=== PATIENT | female | born 1995 | race Caucasian/White ===

== ENCOUNTER 2017-08-03 14:51 | Emergency (ER) | payer OTHER ==
[~2017-08-03] VITALS: Ht 170.2 cm; Wt 79.4 kg
--- NOTE | ~2017-08-03 | EKG ---
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
[~2017-08-03 14:51] MED LIST: ACETAMINOPHEN-1 EAC1 PO; CIPRO500 MG PO; CLONAZEPAM 1 MG1 M1 PO; CYMBALTA60 MG PO; FLEXERIL PO; HYDROCODONE-AP1 EAC6 PO; IBUPROFEN 600600 M1 PO; IBUPROFEN 800800 M1 PO; LAMICTAL100 MG PO; LOXAPINE10 MG PO; NAPROSYN500 MG PO; NORCO 5-325 TA1 EACH PO; PYRIDIUM100 M1 PO; RECLIPSEN1 EACH PO; TOPAMAX 25 MG T25 M1 PO; TRAZODONE 150150 M1 PO; VYVANSE40 MG; VYVANSE50 MG PO; ZOFRAN ODT4 MG PO; ZOFRAN4 MG PO
[2017-08-03] MEDS ORDERED: ATIVAN1 MG PO (15:03)
[2017-08-03 15:24] LABS: ABSOLUTE NEUTROPHILS 7.3 thou/uL (1.4-8.2); BASOPHILS 0.6 % (0.0-2.0); EOSINOPHILS 0.7 % (0.0-3.0); HEMATOCRIT 43.3 % (37.0-47.0); HEMOGLOBIN 15.1 gm/dL (12.0-15.0); LYMPHOCYTES 18.6 % (24.0-44.0); MCH 32.3 pg (26.0-34.0); MCHC 34.8 g/dL (28.0-37.0); MCV 92.9 fL (80.0-100.0); MONOCYTES 6.1 % (1.0-8.0); PLATELET COUNT 232 thou/uL (150-400); RBC 4.67 mil/uL (4.20-5.00); RDW 12.8 % (10.5-14.5); WBC 9.8 thou/uL (4.0-11.0)
[2017-08-03 15:26] LABS: URINE BILIRUBIN NEGATIVE (Negative); URINE BLOOD NEGATIVE (Negative); URINE CLARITY CLEAR; URINE COLOR YELLOW; URINE GLUCOSE-RANDOM* NEGATIVE (Negative); URINE KETONES NEGATIVE (Negative); URINE LEUKOCYTES-REFLEX NEGATIVE (Negative); URINE NITRITE-REFLEX NEGATIVE (Negative); URINE PROTEIN (DIPSTICK) NEGATIVE (Negative); URINE UROBILINOGEN 0.2 E.U./dl (0.2-1.0)
[2017-08-03 15:37] LABS: CREATININE 0.7 mg/dL (0.6-1.0); MAGNESIUM 2.1 mg/dL (1.8-2.4); POTASSIUM 3.8 mmol/L (3.5-5.1)
[2017-08-03 16:48] VITALS: BP 116/70
[2017-08-20] MEDS ORDERED: CYMBALTA20 MG PO (15:10)
[2017-08-20] MEDS ORDERED: HYDROCODONE-AP1 EAC6 PO (16:15)
[2017-08-20] MEDS ORDERED: ZOFRAN ODT4 M1 PO (16:15)
[2017-08-20] MEDS ORDERED: PROVENTIL HFA6.7 G1 INH (16:40)
== END 2017-08-03 17:02 | disposition home or self-care (01) ==
LOC: ER 14:51
PROVIDERS: Emergency Medicine
DX: R07.9 Chest pain, unspecified (principal); R53.1 Weakness; F31.9 Bipolar disorder, unspecified; F90.9 Attention-deficit hyperactivity disorder, unspecified type; Z88.0 Allergy status to penicillin; Z88.1 Allergy status to other antibiotic agents; Z88.8 Allergy status to other drugs, medicaments and biological substances

== ENCOUNTER → 2017-08-20 | Emergency (ER) | payer OTHER ==
[~2017-08-20] VITALS: Ht 165.1 cm; Wt 59.0 kg
[~2017-08-20] MED LIST changes: +ATIVAN1 MG PO; +CYMBALTA20 MG PO; +HYDROXYCHLOROQ200 M1 PO; +ONDANSETRON HCL8 MG PO; +PROVENTIL HFA6.7 G1 INH; +ZOFRAN ODT4 M1 PO
[2017-08-20 15:25] LABS: ABSOLUTE NEUTROPHILS 4.7 thou/uL (1.4-8.2); BASOPHILS 0.4 % (0.0-2.0); EOSINOPHILS 0.6 % (0.0-3.0); HEMATOCRIT 44.8 % (37.0-47.0); HEMOGLOBIN 15.8 gm/dL (12.0-15.0); LYMPHOCYTES 15.9 % (24.0-44.0); MCH 32.6 pg (26.0-34.0); MCHC 35.3 g/dL (28.0-37.0); MCV 92.4 fL (80.0-100.0); MONOCYTES 10.7 % (1.0-8.0); PLATELET COUNT 130 thou/uL (150-400); POLYS 72.4 % (36.0-66.0); RBC 4.85 mil/uL (4.20-5.00); RDW 12.6 % (10.5-14.5); WBC 6.5 thou/uL (4.0-11.0)
[2017-08-20 15:39] LABS: CALCIUM 9.5 mg/dL (8.5-10.1); CREATININE 0.9 mg/dL (0.6-1.0); POTASSIUM 3.5 mmol/L (3.5-5.1)
[2017-08-20 19:05] VITALS: BP 115/61
== END ==
LOC: ER 14:43
PROVIDERS: Physician Assistant
DX: J11.1 Influenza due to unidentified influenza virus with other respiratory manifestations (principal); Z88.1 Allergy status to other antibiotic agents; Z88.0 Allergy status to penicillin; Z88.8 Allergy status to other drugs, medicaments and biological substances

== ENCOUNTER 2017-08-25 14:45 | Emergency (ER) | payer OTHER ==
[~2017-08-25] VITALS: Ht 165.1 cm; Wt 59.0 kg
--- NOTE | ~2017-08-25 | EKG ---
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 08/25/17 1930 1601 1601 Filiberto Solomon MD, FACC /EPI
[~2017-08-25 14:45] MED LIST changes: -HYDROXYCHLOROQ200 M1 PO; -ONDANSETRON HCL8 MG PO
[2017-08-25 15:30] LABS: AMP/METHAMP Negative (Negative); BARBITURATES Negative (Negative); BENZODIAZEPINES Negative (Negative); COCAINE Negative (Negative); METHADONE Negative (Negative); OPIATES Negative (Negative); PCP Negative (Negative)
[2017-08-25 16:02] LABS: ABSOLUTE NEUTROPHILS 7.3 thou/uL (1.4-8.2); BASOPHILS 0.8 % (0.0-2.0); EOSINOPHILS 0.8 % (0.0-3.0); HEMATOCRIT 42.4 % (37.0-47.0); MCH 32.4 pg (26.0-34.0); MCHC 35.4 g/dL (28.0-37.0); MCV 91.6 fL (80.0-100.0); MONOCYTES 5.2 % (1.0-8.0); PLATELET COUNT 212 thou/uL (150-400); POLYS 75.2 % (36.0-66.0); RBC 4.63 mil/uL (4.20-5.00); RDW 12.4 % (10.5-14.5); WBC 9.8 thou/uL (4.0-11.0)
[2017-08-25 16:13] LABS: BE(vivo) 0.6 mmol/L (-2 to +3); HCO3 25.1 mmol/L (22.0-26.0); PCO2 39.9 mmHg (35.0-45.0); PO2 89.1 mmHg (80.0-100.0); pH 7.416 (7.360-7.450); sO2 96.9 % (92.0-98.0)
[2017-08-25 16:13] LABS: ANION GAP 8 mmol/L (7-16); BUN 14 mg/dL (7-18); CALCIUM 9.5 mg/dL (8.5-10.1); CHLORIDE 105 mmol/L (98-107); CO2 25 mmol/L (21-32); CREATININE 0.7 mg/dL (0.6-1.0); GLUCOSE 86 mg/dL (74-106); POTASSIUM 3.7 mmol/L (3.5-5.1); SODIUM 138 mmol/L (136-145)
[2017-08-25 16:19] LABS: DIRECT BILIRUBIN 0.2 mg/dL (<0.1-0.3); SALICYLATE < 2.8 mg/dL (2.8-20.0); SGOT 25 U/L (15-37); SGPT 28 U/L (30-65); TOTAL BILIRUBIN 0.9 mg/dL (<0.1-1.0); TOTAL PROTEIN 7.4 g/dL (6.4-8.2)
[2017-08-25] MEDS ORDERED: ONDANSETRON HCL8 MG PO (17:12)
[2017-08-25] MEDS ORDERED: HYDROXYCHLOROQ200 M1 PO (17:12)
[2017-08-26 00:28] VITALS: BP 113/69
== END 2017-08-26 00:36 ==
LOC: ER 14:45
PROVIDERS: Nurse Practitioner
DX: T39.392A Poisoning by other nonsteroidal anti-inflammatory drugs [NSAID], intentional self-harm, initial encounter (principal); T43.012A Poisoning by tricyclic antidepressants, intentional self-harm, initial encounter; Z88.1 Allergy status to other antibiotic agents; Z88.0 Allergy status to penicillin; Z88.6 Allergy status to analgesic agent; Z88.8 Allergy status to other drugs, medicaments and biological substances; Y92.89 Other specified places as the place of occurrence of the external cause

== ENCOUNTER 2018-07-12 18:52 | Emergency (ER) | payer OTHER ==
[~2018-07-12] VITALS: Ht 165.1 cm; Wt 63.5 kg
[~2018-07-12 18:52] MED LIST changes: +HYDROXYCHLOROQ200 M1 PO; +ONDANSETRON HCL8 MG PO
[2018-07-12] MEDS ORDERED: METOPROLOL SUCC25 M1 PO (19:12)
[2018-07-12] MEDS ORDERED: VYVANSE30 MG PO (19:13)
[2018-07-12] MEDS ORDERED: AMITRIPTYLINE H25 M2 PO (19:14)
[2018-07-12 20:05] LABS: HEMATOCRIT 41.5 % (37.0-47.0); HEMOGLOBIN 15.1 gm/dL (12.0-15.0); MCHC 36.3 g/dL (28.0-37.0); MCV 88.3 fL (80.0-100.0); RBC 4.71 mil/uL (4.20-5.00); RDW 13.3 % (10.5-14.5); WBC 9.2 thou/uL (4.0-11.0)
[2018-07-12 20:08] LABS: CALCIUM 9.4 mg/dL (8.5-10.1); CREATININE 0.8 mg/dL (0.6-1.0); POTASSIUM 3.9 mmol/L (3.5-5.1)
[2018-07-12 20:15] LABS: ALBUMIN 3.9 g/dL (3.4-5.0); TOTAL BILIRUBIN 1.5 mg/dL (<0.1-1.0); TOTAL PROTEIN 7.3 g/dL (6.4-8.2)
[2018-07-12 21:01] VITALS: BP 122/68
--- NOTE | 2018-07-13 08:21 | EKG ---
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
== END 2018-07-12 21:02 | disposition home or self-care (01) ==
LOC: ER 18:52
PROVIDERS: Physician Assistant
DX: R00.2 Palpitations (principal); R00.0 Tachycardia, unspecified; F90.9 Attention-deficit hyperactivity disorder, unspecified type; F31.9 Bipolar disorder, unspecified; Z88.1 Allergy status to other antibiotic agents; Z88.0 Allergy status to penicillin; Z88.6 Allergy status to analgesic agent; Z88.8 Allergy status to other drugs, medicaments and biological substances

== ENCOUNTER 2018-10-09 00:13 | Inpatient (IN) | payer OTHER ==
[~2018-10-09] VITALS: Ht 165.1 cm; Wt 63.5 kg
[~2018-10-09 00:13] MED LIST changes: +AMITRIPTYLINE H25 M2 PO; +METOPROLOL SUCC25 M1 PO; +VYVANSE30 MG PO
[2018-10-09 00:25] VITALS: BP 155/80
[2018-10-09 00:38] LABS: URINE BILIRUBIN NEGATIVE (Negative); URINE BLOOD NEGATIVE (Negative); URINE CLARITY CLEAR; URINE COLOR YELLOW; URINE GLUCOSE-RANDOM* NEGATIVE (Negative); URINE KETONES NEGATIVE (Negative); URINE LEUKOCYTES NEGATIVE (Negative); URINE NITRITE NEGATIVE (Negative); URINE PROTEIN (DIPSTICK) NEGATIVE (Negative); URINE SPECIFIC GRAVITY >= 1.030 (1.005-1.035); URINE UROBILINOGEN 0.2 E.U./dl (0.2-1.0)
[2018-10-09 00:55] LABS: ABSOLUTE NEUTROPHILS 10.6 thou/uL (1.4-8.2); BASOPHILS 0.2 % (0.0-2.0); EOSINOPHILS 0.9 % (0.0-3.0); HEMATOCRIT 42.3 % (37.0-47.0); HEMOGLOBIN 14.6 gm/dL (12.0-15.0); MCH 31.7 pg (26.0-34.0); MCHC 34.6 g/dL (28.0-37.0); MCV 91.5 fL (80.0-100.0); MONOCYTES 2.7 % (1.0-8.0); PLATELET COUNT 169 thou/uL (150-400); POLYS 92.2 % (36.0-66.0); RBC 4.62 mil/uL (4.20-5.00); RDW 12.6 % (10.5-14.5); WBC 11.5 thou/uL (4.0-11.0)
[2018-10-09 01:05] LABS: CALCIUM 8.4 mg/dL (8.5-10.1); CREATININE 0.7 mg/dL (0.6-1.0); POTASSIUM 3.5 mmol/L (3.5-5.1)
[2018-10-09 01:11] LABS: DIRECT BILIRUBIN 0.2 mg/dL (<0.1-0.3); TOTAL BILIRUBIN 1.2 mg/dL (<0.1-1.0); TOTAL PROTEIN 6.9 g/dL (6.4-8.2)
[2018-10-09 02:23] LABS: URINE BILIRUBIN NEGATIVE (Negative); URINE BLOOD NEGATIVE (Negative); URINE CLARITY CLEAR; URINE COLOR YELLOW; URINE GLUCOSE-RANDOM* NEGATIVE (Negative); URINE KETONES TRACE (Negative); URINE LEUKOCYTES-REFLEX NEGATIVE (Negative); URINE NITRITE-REFLEX NEGATIVE (Negative); URINE PROTEIN (DIPSTICK) NEGATIVE (Negative); URINE SPECIFIC GRAVITY 1.015 (1.005-1.035); URINE UROBILINOGEN 0.2 E.U./dl (0.2-1.0)
[2018-10-09 05:17] VITALS: BP 115/70
[2018-10-09] MEDS ORDERED: PHENERGAN 25 MG25 M1 PO (05:17)
[2018-10-09 07:30] VITALS: BP 123/63
--- NOTE | 2018-10-09 07:49 | NUR ---
PT ARRIVED INTO THE UNIT AT AROUND 0620 HRS. SETTLED IN ROOM 418. OIENTED TO STAFF AND USE OF CALL LIGHT. DENIES NAUSEA OR VOMITING. REPORT GIVEN TO ONCOMING RN-INDIRA BELL.
[2018-10-09 15:00] VITALS: BP 121/71
--- NOTE | 2018-10-09 15:15 | NUR ---
ASSUMED CARE OF PT APPROX. 0715. PT IS A&0X4, AMBULATORY. NO N/V AT THAT TIME. NS STARTED AT 100/HR. PT PLACED ON NPO TIL GI HAS CONSULTED. ADMIT COMPLETE. WILL CONT POC.
[2018-10-09 19:21] VITALS: BP 126/74
--- NOTE | 2018-10-10 01:38 | NUR ---
PT LEFT AMA AT 2149. AMA PAPER SIGNED--EXPLANATION OF CONSEQUENCES REGARDING INSURANCE EXPLANED. PT LEFT AMBULATORY WITH SIGNIFICANT OTHER.
== END 2018-10-09 21:50 | disposition left against medical advice (07) | DRG 392 ==
LOC: ER 00:13 → EROBS 06:03 → 4E 06:16
PROVIDERS: Student in an Organized Health Care Education/Training Program; ADMIT Internal Medicine
DX: K52.9 Noninfective gastroenteritis and colitis, unspecified (principal); R10.9 Unspecified abdominal pain; R11.2 Nausea with vomiting, unspecified; F31.9 Bipolar disorder, unspecified; M32.9 Systemic lupus erythematosus, unspecified; F90.9 Attention-deficit hyperactivity disorder, unspecified type; Z53.21 Procedure and treatment not carried out due to patient leaving prior to being seen by health care provider; Z87.891 Personal history of nicotine dependence; Z90.49 Acquired absence of other specified parts of digestive tract; Z79.899 Other long term (current) drug therapy; Z88.0 Allergy status to penicillin; Z88.1 Allergy status to other antibiotic agents; Z88.8 Allergy status to other drugs, medicaments and biological substances
CPT/HCPCS: 10084

== ENCOUNTER 2019-05-26 21:29 | Emergency (ER) | payer OTHER ==
[~2019-05-26] VITALS: Ht 167.6 cm; Wt 68.0 kg
[~2019-05-26 21:29] MED LIST changes: +PHENERGAN 25 MG25 M1 PO
[2019-05-26] MEDS ORDERED: MOBIC15 MG PO (22:38)
[2019-05-26 22:56] VITALS: BP 124/64
== END 2019-05-26 22:57 | disposition home or self-care (01) ==
LOC: ER 21:29
DX: S86.812A Strain of other muscle(s) and tendon(s) at lower leg level, left leg, initial encounter (principal); F31.9 Bipolar disorder, unspecified; Z98.890 Other specified postprocedural states; Z88.1 Allergy status to other antibiotic agents; Z88.6 Allergy status to analgesic agent; Z88.0 Allergy status to penicillin; Z88.8 Allergy status to other drugs, medicaments and biological substances; Z87.891 Personal history of nicotine dependence; X50.0XXA Overexertion from strenuous movement or load, initial encounter; Y92.89 Other specified places as the place of occurrence of the external cause; Y93.89 Activity, other specified; Y99.8 Other external cause status

== ENCOUNTER 2019-06-27 19:59 | Emergency (ER) | payer OTHER ==
[~2019-06-27] VITALS: Ht 167.6 cm; Wt 63.5 kg
[~2019-06-27 19:59] MED LIST changes: +MOBIC15 MG PO
[2019-06-27] MEDS ORDERED: VENTOLIN HFA 1818 GM INH (21:55)
[2019-06-27 22:03] VITALS: BP 142/88
== END 2019-06-27 22:04 | disposition home or self-care (01) ==
LOC: ER 19:59
DX: R06.00 Dyspnea, unspecified (principal); Z87.891 Personal history of nicotine dependence; Z88.6 Allergy status to analgesic agent; Z88.1 Allergy status to other antibiotic agents; Z88.0 Allergy status to penicillin; Z88.8 Allergy status to other drugs, medicaments and biological substances